=== PATIENT | male | born 2000 | race Caucasian/White ===

== ENCOUNTER 2018-05-18 02:43 | Emergency (ER) | payer OTHER ==
--- NOTE | 2018-05-18 03:07 | EDPHY ---
H & P Stated Complaint: TIPPED BACK ON A STOOL, FELL ONTO HEAD, NO LOC Time Seen by Provider: 05/18/18 02:56 HPI/ROS: HPI: The patient presents with scalp laceration, sustained about 30 min prior to arrival. He was sitting on a bar stool and the stool tipped, he fell backwards, landing on his head. The surface was wooden. He did not lose consciousness. He does not have any nausea, vomiting, dizziness, headache, vision changes, behavioral change. His tetanus vaccine is up-to-date. He has been drinking alcohol tonight. REVIEW OF SYSTEMS 10 systems were reviewed and negative with the exception of the elements mentioned in the history of present illness. PMHx: Healthy TRAUMA PHYSICAL General Appearance: Alert, no distress Head: 6 cm scalp laceration midline parietal region Eyes: Pupils equal, round, reactive ENT, Mouth: No hemotypanium, no oral trauma Neck: Non- tender, trachea midline Respiratory: No chest wall tenderness, no subcutaneous air, lungs clear bilaterally Cardiovascular: Regular rate and rhythm Abdomen: Abdomen is soft and non-tender, pelvis stable Skin: No lacerations, No abrasion Back: No midline T/L/S pain Extremities: Non-tender, full range of motion Neurological: A&Ox3, GCS=15,normal motor function with 5/5 strength in all 4 extremities, normal sensory exam Source: Patient Exam Limitations: No limitations - Personal History Current Tetanus/Diphtheria Vaccine: Yes Current Tetanus Diphtheria and Acellular Pertussis (TDAP): Yes - Medical/Surgical History Hx Asthma: No Hx Chronic Respiratory Disease: No Hx Diabetes: No Hx Cardiac Disease: No Hx Renal Disease: No Hx Cirrhosis: No Hx Alcoholism: No Hx HIV/AIDS: No Hx Splenectomy or Spleen Trauma: No Other PMH: DENIES - Social History Smoking Status: Never smoked Constitutional: Initial Vital Signs Temperature (C) 36.5 C 05/18/18 02:47 Heart Rate 90 05/18/18 02:47 Respiratory Rate 18 05/18/18 02:47 Blood Pressure 136/76 H 05/18/18 02:47 O2 Sat (%) 94 05/18/18 02:47 O2 Delivery Mode Room Air Allergies/Adverse Reactions: No Known Allergies Allergy (Unverified 05/18/18 02:48) Home Medications: Medication Instructions Recorded NK [No Known Home Meds] 05/18/18 Medical Decision Making Procedures: LACERATION REPAIR Procedure: Laceration repair. Verbal consent was obtained from the patient. The linear 6 cm laceration on the scalp was anesthetized using lidocaine with epinephrine. The wound was scrubbed, draped and explored to its base with a gloved finger. There were no deep structures involved. No tendon injury was identified. . The wound was repaired with 8 concetta. The wound repair was simple. The procedure was performed by myself. Differential Diagnosis: This is a 17-year-old male who was sitting on a bar stool and fell backwards landing on his head, sustaining scalp laceration. No loss of consciousness, headache, vomiting, behavior change. Here, he does have a scalp laceration without hematoma. No neurologic change. Plan for laceration repair. By nexus 2 criteria, he does not require CT scan of his head. Departure - Departure Disposition: Home, Routine, Self-Care Clinical Impression: Fall involving stool as cause of accidental injury Scalp laceration Qualifiers: Encounter type: initial encounter Qualified Code(s): S01.01XA - Laceration without foreign body of scalp, initial encounter Condition: Good Instructions: Staple Care (ED) Additional Instructions: The concetta should be removed in 10 days on May 27. You can come to the front end architect of the emergency department or go to the [facility] for this. Referrals: [facility] ,. [Clinic] - As per Instructions
[2018-05-18 03:43] VITALS: BP 135/85
== END 2018-05-18 03:45 | disposition home or self-care (01) ==
PROC: 0HQ0XZZ Repair Scalp Skin, External Approach (ICD-10-PCS; principal; 2018-05-18)
DX: S01.01XA Laceration without foreign body of scalp, initial encounter (principal); W07.XXXA Fall from chair, initial encounter